=== PATIENT | male | born 1990 | race Caucasian/White ===

== ENCOUNTER 2017-05-23 16:11 | Inpatient (IN) | payer OTHER ==
[~2017-05-23] VITALS: Ht 193 cm; Wt 81.6 kg
[~2017-05-23 16:11] MED LIST: CLONIDINE0.1 MG PO; HYDROXYZINE50 MG PO; ZOFRAN4 MG PO
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
[2017-05-23 17:25] LABS: ABSOLUTE BASOPHIL COUNT 0 /CUMM (0.0-0.2); ABSOLUTE EOSINOPHIL COUNT 0.2 /CUMM (0.0-0.7); ABSOLUTE GRANULOCYTE CT 6.6 /CUMM (1.4-6.5); ABSOLUTE LYMPH COUNT 1.5 /CUMM (1.2-3.4); ABSOLUTE MONOCYTE COUNT 0.6 /CUMM (0.10-0.60); BASOPHIL % 0.3 % (0.0-2.0); EOSINOPHIL % 2.3 % (0-5); GRANULOCYTE % 73.5 % (42.2-75.2); MEAN CORPUSCULAR HGB 28.9 PG (27.0-31.0); MEAN CORPUSCULAR HGB CONC 33.4 G/DL (33.0-37.0); MEAN CORPUSCULAR VOLUME 86.6 FL (80.0-94.0); MEAN PLATELET VOLUME 7.7 FL (7.4-10.4); PLATELET COUNT 268 /CUMM (130-400); RBC DISTRIBUTION WIDTH 16.3 % (11.5-14.5)
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
[2017-05-23 20:58] VITALS: BP 141/69
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
--- NOTE | 2017-05-23 21:44 | History & Physical ---
General Information and HPI MD Statement: I have seen and personally examined TEENAMCKENZIE Mcneill and documented this H&P. The patient is a 26 year old M who presented with a patient stated chief complaint of [ medical evaluation ]. Source of Information: patient Exam Limitations: no limitations History of Present Illness: 26-year-old male with past medical history significant for depression, polysubstance abuse presented to ER for help in detox and major depression. Patient does not have a space to live right now and has been living with one friend or the other. Has been using heroine every day and cocaine every few days, last cocaine use on Friday. Patient was admitted last year for similar complaints, was successfully abstaining from drugs until summer then he relapsed again. Patient does not have any other medical problems, no recent hospitalizations, denies any chest pain, palpitations, chest congestion, cough, expectoration, abdominal pain, nausea, vomiting, diarrhea, urinary symptoms, loss of consciousness, falls, skin rashes. Allergies/Medications Allergies: Coded Allergies: No Known Allergies (05/23/17) Home Med list No Known Home Medications Past History Travel History Traveled to [facility] past 21 day No Medical History Neurological: NONE EENT: NONE Cardiovascular: NONE Respiratory: NONE Gastrointestinal: NONE Hepatic: NONE Renal: NONE Musculoskeletal: NONE Psychiatric: depression, IV drug abuse, substance abuse, Cocaine use d/o Cannabis use d/o Endocrine: NONE Blood Disorders: NONE Cancer(s): NONE COFFEE BREWER/Reproductive: NONE History of MRSA: No History of VRE: No History of CDIFF: No Isolation History: Standard Tetanus Vaccine: 06/02/03 Surgical History Surgical History: non-contributory Past Family/Social History Family History Relations & Conditions if any Relation not specified for: *No pertinent family history Psychosocial History Where do you live? Other Who Do You Live With? friend Services at Home: None Primary Language: Nepali Smoking Status: Current Everyday Smoker ETOH Use: occasional use Illicit Drug Use: heroin Functional Ability ADLs Independent: dressing, eating, toileting, bathing. Ambulation: independent IADLs Independent: shopping, housework, finances, food prep, telephone, transportation , medication admin. 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 EENTM: Reports: no symptoms. Cardiovascular: Reports: no symptoms. Respiratory: Reports: no symptoms. GI: Reports: no symptoms. Genitourinary: Reports: no symptoms. Musculoskeletal: Reports: no symptoms. Skin: Reports: no symptoms. Neurological/Psychological: Reports: no symptoms. Hematologic/Endocrine: Reports: no symptoms. Exam & Diagnostic Data Last 24 Hrs of Vital Signs/I&O Vital Signs Date Time Temp Pulse Resp B/P B/P Pulse O2 O2 Flow FiO2 Mean Ox Delivery Rate 05/23 2058 97.4 79 141/69 05/23 2001 97.3 82 18 141/66 100 05/23 1920 97.9 78 17 150/77 100 Room Air 05/23 1710 99.0 68 16 134/67 99 Room Air Intake & Output 05/23 1600 05/24 0000 05/24 0800 Intake Total Output Total Balance Patient 81.647 kg Weight Weight Reported by Patient Measurement Method Physical Exam General Appearance Alert, Oriented X3, Cooperative, No Acute Distress Skin No Rashes, No Breakdown HEENT Atraumatic, PERRLA, EOMI Neck Supple, No JVD, No thryomegaly, +2 Carotid Pulse wo Bruit Lymphatic Cervical nl Cardiovascular Regular Rate, Normal S1, Normal S2, No Murmurs Lungs Clear to Auscultation, Normal Air Movement Abdomen Normal Bowel Sounds, Soft, No Tenderness Neurological Exam Findings: Normal Gait, Normal Speech, Strength at 5/5 X4 Ext, Normal Tone, Sensation Intact, Cranial Nerves 3-12 NL, Reflexes 2+ Cranial Nerves II through XII: 3-12 intact Extremities No Clubbing, No Cyanosis, No Edema, Normal Pulses Vascular Normal Pulses, Pulses Symmetrical Last 24 Hrs of Labs/Walter: Laboratory Tests 05/23/171714: Serum Alcohol < 10.0 05/23/171714: Anion Gap 11, Estimated GFR > 60, BUN/Creatinine Ratio 14.0, Glucose 91, Calcium 10.0, Total Bilirubin 0.4, AST 26, ALT 40, Alkaline Phosphatase 61, Total Protein 7.0, Albumin 4.1, Globulin 2.9, Albumin/Globulin Ratio 1.4, CBC w Diff NO MAN DIFF REQ, RBC 4.50 L, MCV 86.6, MCH 28.9, RDW 16.3 H, MPV 7.7, Gran % 73.5, Lymphocytes % 17.1 L, Monocytes % 6.8, Eosinophils % 2.3, Basophils % 0.3 , Absolute Granulocytes 6.6 H, Absolute Lymphocytes 1.5, Absolute Monocytes 0.6 , Absolute Eosinophils 0.2, Absolute Basophils 0, PUBS MCHC 33.4, Urine Opiates Screen < 100.00, Methadone Screen < 40, Barbiturate Screen < 60, Ur Phencyclidine Scrn < 6.00, Amphetamines Screen 158, U Benzodiazepines Scrn < 85, Urine Cocaine Screen 267, Urine Cannabis Screen 45.40 Diagnostic Data EKG Results ECG reviewed, partial right bundle branch block Assessment/Plan Assessment: #1 polysubstance abuse: cocaine and heroine, occasional alcohol use, current smoker. Last cocaine use 5 days back, no complaints of chest pain, palpitations , loss of consciousness. No acute ECG changes. Continuously yawning, probably secondary to heroin withdrawal. Agree with psychiatrist plan #2 depression: Agree with psychiatrist plan As Ranked By This Provider Problem List: 1. Depression Qualifiers Depression Type: unspecified Qualified Code: F32.9 - Major depressive disorder, single episode, unspecified 2. Heroin abuse 3. Polysubstance abuse Miscellaneous Miscellaneous Documentation Attending Case Discussed With: Suraj KUNZ PHD,Alejandro Emmanuel Primary Care Physician: Patient Has No Primary Care Dr Patient sees these Specialists Unknown Level of Patient Care: NAWAF Dey
--- NOTE | 2017-05-24 01:39 | Admission Certification ---
Admission Certification Certification Statement - As attending physician, I certify that at the time of - admission, based on clinical presentation, severity of - symptoms, need for further diagnostic testing and - therapeutic interventions, and risk of adverse outcomes - without in-hospital treatment, in my clinical assessment, - this patient requires an acute hospital stay for a minimum - of two nights or longer. I have also considered psychsocial - factors such as support system, advanced age, financial - issues, cognitive issues, and failed out-patient treatments, - past re-admission history, safety of patient, and lack of - compliance as applicable. Specific rationale supporting this admission is: Polysubstance abuse, withdrawal, major depression.
[2017-05-24 07:00] VITALS: BP 132/84
[2017-05-24 07:44] VITALS: BP 132/84
[2017-05-24 12:14] VITALS: BP 127/66
--- NOTE | 2017-05-24 14:29 | CPS PROVIDER INIT ASMT PSYCH ---
Psychiatric Admission Adjunct Psychology Faculty Member's Note Reviewed: Yes Patient Seen and Examined: Yes Identifying Information: 26-year-old undomiciled, unemployed man Chief Complaint: "I feel like crap" Reaction to Hospitalization: Appreciative History of Present Illness Onset of Illness: Chronic history of mood and opiate use disorders Circumstances Leading to Admission: Presented to [facility] ER 05/23, accompanied by his girlfriend. Reports chronic depression that been worsening with recent onset of suicidal ideation with plan to overdose. Says that he has multiple stressors, including recent loss of his job, loss of his housing, and loss of his vehicle. He also is unable to control his ongoing opiate use disorder, and reports using "up to 25 bags "each day of intravenous heroin. Also notes use of crack cocaine one week ago. Problem(s) Justifying Need for Admission: Suicidal ideation, worsening depression, malignant opiate use disorder Other HPI: As noted in crisis note: The pt reports he has been hospitalized 3x in the past 6 months for depression, SI and Opiate dependence. The pt was hospitalized at [facility] twice and [facility] once. The pt is not engaged in outpatient treatment and has a hx of inpatient detox. The pt reports that 2 years ago he was on Methadone maintenance for approximately 4 months but stopped due to not feeling well on Methadone. The pt was admitted twice in the past to [facility] for depression, SI and Heroin dependence (07/2015 and 07/2014). Previous records indicate the pt was prescribed Wellbutrin and Zoloft. Past Psychiatric History Past Diagnosis(es)- if any: Depressive disorder, unspecified Severe opioid use disorder Severe cannabis use disorder Severe cocaine use disorder Past Precipitating Factors- if any: Homelessness, unemployment, substance use - Include inpatient and outpatient treatment Treatment History: History of multiple previous inpatient hospitalizations, was last treated at [facility] July 2015 for 6 days under similar circumstances to current. At that time was detox, started on Wellbutrin and and discharged on Wellbutrin 150 mg daily of the XL formulation. Also discharged on gabapentin 400 mg twice a day for anxiety. At that time he declined adding a mood stabilizer despite it being recommended by the treatment team. He was referred to the [facility] for rehabilitation program Has a history of noncompliance with outpatient follow-up. Short period of methadone maintenance (for months reportedly) and then stopped. History of Suicide Attempts or Gestures Previous attempt to hang self at age 18 Substance Abuse History: See above Allergies: Coded Allergies: No Known Allergies (05/23/17) Home Med List: The patient reports taking no home medications. - Include any medical condition(s) that may - impact the patient's recovery/remission Past History Medical History Neurological: NONE EENT: NONE Cardiovascular: NONE Respiratory: NONE Gastrointestinal: NONE Hepatic: NONE Renal: NONE Musculoskeletal: NONE Psychiatric: depression, IV drug abuse, substance abuse, Cocaine use d/o Cannabis use d/o Endocrine: NONE Blood Disorders: NONE Cancer(s): NONE WHOLESALE AGRONOMIST/Reproductive: NONE History of MRSA: No History of VRE: No History of CDIFF: No Isolation History: Standard Tetanus Vaccine: 06/02/03 Surgical History Surgical History: none Psychiatric Family/Social Hx Family History Psychiatric Illness: Unknown Substance Use: Unknown Suicides: Unknown Social History Living Situation: Currently homeless Significant Relationships (family/friends): Reports having a girlfriend, as well as a supportive mother Education: High school Vocation/Occupation: Currently unemployed. 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 Healthly Behaviors Screening Tobacco Screening Tobacco Use from ED Docu: Current Daily Use Daily Tobacco Use Amount/Type: => 5 Cigarettes daily - If tobacco counseling indicated - the following topics are required. - #1 Recognizing dangerous situations. - #2 Coping Skills. - #3 Basic information about quitting. Status of Tobacco Cessation Counseling: #1, #2 AND #3 Completed Cessation Med Status Nicotine Gum Ordered Alcohol Screening - ETOH screen POS if BAL >=80 or Audit-C>= M4/F3 Audit-C Score from Diag Assess: 1 Blood Alcohol Level: Laboratory Tests 05/23 1715 Toxicology Serum Alcohol (<10 MG/DL) < 10.0 Alcohol Use Screening Results: Neg per Audit C &/or BAL - If ETOH counseling indicated - the following topics are required. - #1 Express concern about the patient's - drinking at unhealthy levels, include informing - of national norms for moderate drinking: - men <= 14 drinks/week, max 4 drinks/occasion - women <= 7 drinks/week, max 3 drinks/occasion - #2 Providing feedback, including linking alcohol to - negative physical effects (liver injury, hypertension) - negative emotional effects (relationship problems and - depression) - negative occupational consequences (reduced work - performance) - #3 Advising the patient to abstain from alcohol or - to drink below national norms for moderate drinking - (as listed above). Status of ETOH Use Counseling: N/A B/C NO ETOH Use Metabolic Screening - Screen if on a Neuroleptic Medication - Metabolic screening should include: - Blood Pressure, BMI, Glucose or Hgb A1c, & a - Lipid profile from within the past 365 days. Metabolic Screening () Not Applicable, patient not on a neuroleptic. Exam and Plan Mental Status Examination Ambulation Status: Stable Appearance: Numerous tattoos, mildly disheveled Attitude towards examiner: Pleasant and cooperative Psychomotor activity: Within normal limits Behavior: Within normal limits Quality of speech: Normal rate, amount, volume, prosody Affect: Constricted Mood: "Depressed " Suicidal Ideation: Denies currently Homicidal Ideation: Denies currently Hallucinations: Denies currently Paranoid/Delusional Material: None evidenced Difficulties with thought organization: None evidenced Insight: Fair Judgment: Poor Orientation: To person place time and situation Cognition: Appropriate attention, immediate and delayed recall Memory Function: Intact as noted above Estimate of intellectual functioning: Average Assets/Strengths Patient Identified Assets/Strengths: Supportive mother, supportive girlfriend, history of recent employment Impression/Plan Impression and Plan: 26-year-old with chronic opiate use disorder and co-occurring depressive disorder, presenting with suicidal ideation in context of psychosocial stressors and poor outpatient treatment compliance. - Include all active medical diagnosis that require tx DSM 5 Diagnosis(es): Depressive disorder, unspecified Rule out opiate-induced depressive disorder Severe opiate use disorder Cocaine use disorder, moderate Cannabis use disorder, severe, in remission - Initial Tx Plan for Active Psych & Medical Conditions Treatment Plan: Admit to Inpatient Psychiatry 15 minute checks Administer COWS every 4 hours Symptom triggered methadone administration for opioid withdrawal COWS>10. Clonidine administration for mild symptoms of withdrawal COWS <11. Will identify total methadone needs and place on taper Restart on Wellbutrin XL 150 mg daily Tobacco cessation counseling and nicotine replacement treatments provided Collect further collateral - Factors that would help patient function - in a less restrictive setting. Factors: Absence of suicidal ideation Improvement in mood
[2017-05-24 15:51] VITALS: BP 120/73
[2017-05-24 18:29] VITALS: BP 139/69
[2017-05-25 09:32] VITALS: BP 141/70
[2017-05-25 12:08] VITALS: BP 135/75
--- NOTE | 2017-05-25 12:42 | CP SOUTH PROGRESS NOTE PSYCH ---
Psych (Inpt) Progress Note Progress Note Include the following elements, when applicable: Involvement in the active treatment of the patient with behavioral observations of the patient and the patient's response to the treatment. Review of the ongoing treatment process in the context of the treatment plan. Indication of how multi-disciplinary staff members are carrying out the treatment plan. Plans for future interventions and recommendations for revision of the treatment plan. Liaison with other physicians/providers. Progress Note: Chart reviewed, progress discussed with nursing staff. Interviewed patient this morning. He notes ongoing symptoms of opiate withdrawal, these were confirmed with nursing staff, including last night requiring a bedding change due to night sweats. Yesterday he took 30 mg of methadone during the course of the day, and discussed with patient initiating a taper at 30 mg today, 20 mg tomorrow. He is in agreement with this plan. We also discussed taking clonidine as needed for any breakthrough symptoms of which again he is in agreement. He tolerated initiation of Wellbutrin XL 150 mg daily yesterday without concern, and today he denies any SI or HI. Denies perceptual disturbances. He feels as though he is improving slowly. Vital signs reviewed and were within normal limits. There are no new laboratory tests resulting this morning. I reviewed his EKG, which demonstrated a QTC of 422 ms. Mental status exam: Adequately groomed, mildly thin man with multiple tattoos dressed in hospital clothing. No abnormal movements noted, no psychomotor retardation or agitation. Good eye contact. Speech was within normal limits. Mood was "getting better", affect was mildly constricted, non- labile, congruent. Thought process was logical and linear. Thought content without suicidal or homicidal ideation. He denies perceptual disturbances. Cognition was grossly intact. Insight and judgment were fair. Assessment and plan: Co-Occurring opiate use disorder and depressive disorder, he is tolerating methadone for brief detox adequately. I have started a standing methadone taper for him. I have also reinitiated his antidepressant, Wellbutrin, on which he has had good response to the past. Plan would be likely for longer-term substance use rehabilitation following acute psychiatric hospitalization.
[2017-05-25 15:43] VITALS: BP 123/56
[2017-05-25 19:28] VITALS: BP 128/66
[2017-05-25 19:50] VITALS: BP 128/66
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
[2017-05-26 07:42] VITALS: BP 122/68
[2017-05-26 12:02] VITALS: BP 137/79
--- NOTE | 2017-05-26 13:25 | CP SOUTH PROGRESS NOTE PSYCH ---
Psych (Inpt) Progress Note Progress Note Include the following elements, when applicable: Involvement in the active treatment of the patient with behavioral observations of the patient and the patient's response to the treatment. Review of the ongoing treatment process in the context of the treatment plan. Indication of how multi-disciplinary staff members are carrying out the treatment plan. Plans for future interventions and recommendations for revision of the treatment plan. Liaison with other physicians/providers. Progress Note: Dr. Ruelas's notes reviewed. Medication list reviewed. Case discussed with nurse. Nurse reports that the patient is here with depression and opiate and stimulant use. Patient apparently had suicidal ideation to hang himself or to overdose with heroin. Patient is on COWS and a methadone taper. Looks well. Motivated for treatment. Wants to get into rehab. Patient seen at 10:18 AM. States is here with depression, substance abuse and passive suicidal ideation. He is on Wellbutrin and a methadone taper. Affect is calm and blunted to euthymic. Feels well today. Reports he woke up at 6 AM. Reports mood is stable. Rates sad mood 0/10. Reports anxiety is maybe like a 3-4/10. Denies feeling hopeless, helpless or worthless. Feels guilty for having cheated on his girlfriend 6 months ago and for his drug use. Denies active and passive suicidal ideation. Denies homicidal ideation. Denies auditory and visual hallucinations and paranoid ideation. Reports sleep has been complicated by middle of the night awakenings with sweating. Appetite is suppressed. Energy is low. Tolerating medications well, without complaint. IMPRESSION: Slow progress. Continue present treatment plan.
[2017-05-26 15:57] VITALS: BP 122/81
[2017-05-26 20:05] VITALS: BP 127/67
[2017-05-27 07:50] VITALS: BP 132/72
[2017-05-27 12:33] VITALS: BP 141/66
--- NOTE | 2017-05-27 14:59 | SOCIAL WORKER PROG NOTE PSYCH ---
Social Work Progress Note Progress Note SW met with pt. He presents as calm, cooperative and friendly. Denies SI/Hi/AH/ VH at present. Pt said he is feeling a lot better and thinks the wellbutrin and methadone are helping. He denies cravings at this time but thinks the meds are helping with it. He notes stressors of being evicted, not working and feels he needs a halfway rehab as he has been doing this for 9 years. Hx of working [facility]. He is interested in looking into [facility], [facility], [facility], [email or web address] and [place].
--- NOTE | 2017-05-27 15:10 | CP SOUTH PROGRESS NOTE PSYCH ---
Psych (Inpt) Progress Note Progress Note I reviewed Dr. See note from yesterday and Dr. Ruelas's notes from the weekend. I listened to multidisciplinary staff meetings input including nursing staff and social work. I reviewed the current and prior medications with Simone. Summary: Simone had suicidal ideation to hang himself or to overdose with heroin prior to / on the day of his admission. Mental Status Examination: Simone was alert and oriented to time, place, and person. Affect is calm and euthymic. He reported that he feels well today/not depressed. He reported mild anxiety, denies feeling hopeless or worthless, and denied thinking of suicide or violence He reported his girlfriend is being admitted inpatient for psych and drug use denies auditory and visual hallucinations and paranoid ideation. There were no delusions and no thought disorder Assessment: Patient believes he is ready for discharge to a rehab but not discharge to the street He is currently homeless as he and girlfriend were evicted Treatment Plan Update: D/ C Methadone (per patients request and he has no withdrawal symptoms or signs , he had only one dose of 5 mg scheduled anyway) D/C Trazodone (makes patient restless/does not help him sleep)
[2017-05-27 16:39] VITALS: BP 137/71
[2017-05-27 20:17] VITALS: BP 135/78
[2017-05-28 08:03] VITALS: BP 133/92
[2017-05-28 12:24] VITALS: BP 139/61
--- NOTE | 2017-05-28 13:46 | CP SOUTH PROGRESS NOTE PSYCH ---
Psych (Inpt) Progress Note Progress Note I listened to multidisciplinary treatment staff meetings input including nursing and social work. Mental Status Examination: Simone was alert and oriented to time, place, and person. His affect was euthymic. He reported that he slept the best sleep he had in a while (for 2 [id number]), he reported that he is not depressed today. He reported mild anxiety, denies feeling hopeless or worthless, and denied thinking of suicide or violence. He denied auditory and visual hallucinations and paranoid ideation. There were no delusions and no thought disorder Assessment: Simone was admitted to [facility] because he had suicidal ideation to hang himself or to overdose with heroin. He is currently homeless as he and girlfriend were evicted. Showing progress but focused in direct discharge to rehab Treatment Plan Update: Continue Wellbutrin-XL 150 mg daily Re-evaluate tomorrow
--- NOTE | 2017-05-28 14:05 | SOCIAL WORKER PROG NOTE PSYCH ---
Social Work Progress Note Progress Note Simone was anxious to start working on referrals to rehab today, since this had not been done yet. He reported that he had made some calls, but they really needed the clinical info. Had him sign releases for [facility], [facility], [facility], [facility], [facility], [facility], [employer], [facility], [facility], and [facility]. All referrals were faxed. He was last in rehab in 2016, when he went to [facility] from here. He is currently homeless. Evicted from his apartment. Reports staying with family is not an option. Worried that he will be discharged without a plan. Reported later that he thinks that [facility] may be an option for him and that they may have a bed on Friday. Application was filled out and faxed back to admissions.
[2017-05-28 15:37] VITALS: BP 143/67
--- NOTE | 2017-05-28 17:42 | RADIOLOGY REPORT ---
EXAMINATION: XR CHEST CLINICAL INFORMATION: Rehabilitation COMPARISON: Chest x-ray 02/19/2006 TECHNIQUE: 2 views of the chest were obtained. FINDINGS: No significant abnormality is noted involving the heart, lungs, mediastinum, bony thorax or soft tissues. IMPRESSION: Unremarkable examination.
[2017-05-28 19:35] VITALS: BP 138/57
[2017-05-29 07:56] VITALS: BP 137/74
--- NOTE | 2017-05-29 08:13 | SOCIAL WORKER PROG NOTE PSYCH ---
Social Work Progress Note Progress Note Filled out release of information for [facility] and faxed back to [facility] for possible case management services from [facility] for Simone.
[2017-05-29 11:57] VITALS: BP 134/78
--- NOTE | 2017-05-29 12:57 | CP SOUTH PROGRESS NOTE PSYCH ---
Psych (Inpt) Progress Note Progress Note The multidisciplinary treatment team discussed Eliaz[facility] care and progress in the staff meeting (which included input from nursing and social work. Mental Status Examination: Simone seemed to be in good spirits this morning. He was watching a basketball game. He was alert and oriented to time, place, and person. His affect was euthymic. Simone reported that he continues to sleep very well. He reported that he is not depressed and not anxious. He denied feeling hopeless or worthless, and denied thinking of suicide or violence. He denied auditory and visual hallucinations and denied paranoid ideation. There were no delusions and no thought disorder Assessment: Simone is a 26-year-old single White male who was admitted to [facility] because he had suicidal ideation. Simone is currently homeless because he (and girlfriend) were evicted. Showing progress and working hard on a direct discharge to a rehab Chest X-ray FINDINGS: No significant abnormality is noted involving the heart, lungs, mediastinum, bony thorax or soft tissues. IMPRESSION: Unremarkable examination. Treatment Plan Update: Continue Wellbutrin-XL 150 mg daily Re-evaluate tomorrow
--- NOTE | 2017-05-29 13:19 | SOCIAL WORKER PROG NOTE PSYCH ---
Social Work Progress Note Progress Note Called [employer]. and left a message for their tourist information assistant Ayla. Faxed [facility] Simone's X-ray per their request. Spoke with Sukhjinder at [facility] [phone] about Simone's referral for case management. Sukhjinder would like to know where Simone will be going at discharge so he can follow up with him. Called [facility] and discussed level of care authorization for rehab. Spoke with [facility] . Simone is approved for [facility], but if he can't get in there he would be approved for a short-term 30 day rehab. Called [facility] and left a message for their clinical director. Yvette from [facility] returned the call, she had some concerns that she wanted addressed about Simone's risks around SI and EKG results. She said a letter from the psychiatrist would suffice in regards to Simone's current risk of suicide. Dr. Kern (banquet attendant) was able to review EKG's from the past 2 years. A letter was written by Dr. Kruger to discuss findings and to discuss current suicide risk. These letters were faxed to [facility]. [facility] called and stated they will take Simone tomorrow. Called [facility] to schedule transport.
--- NOTE | 2017-05-29 15:14 | SOCIAL WORKER PROG NOTE PSYCH ---
Social Work Progress Note Progress Note MCKENZIE DICKINSON [id number] 1990 MCKENZIE DICKINSON [id number] Pended Authorization # Client Authorization # Type of Request [id number] CONCURRENT Date of Admission/ Start of Services Requested From Submission Date 05/23/2017 05/29/2017 05/29/2017
[2017-05-29 15:43] VITALS: BP 125/65
[2017-05-29 20:11] VITALS: BP 141/77
[2017-05-30 07:34] VITALS: BP 136/73
[2017-05-30] MEDS ORDERED: NEURONTIN300 M1 PO (08:37)
[2017-05-30] MEDS ORDERED: WELLBUTRIN XL150 M2 PO (08:37)
--- NOTE | 2017-05-30 10:04 | SOCIAL WORKER PROG NOTE PSYCH ---
Social Work Progress Note Progress Note Called [facility] and spoke with one of the nurses. She stated Simone would need about 30 days of meds with him and then he will see a prescriber while he was there. Meds were filled at [facility] so he could take with him. Simone was excited and ready to go. Left around 9:30am via [facility] [employer].
--- NOTE | 2017-05-30 10:06 | SOCIAL WORKER PROG NOTE PSYCH ---
Social Work Progress Note Faxed Referral(s) Referred To: [facility] Transition of Care Documents sent: Health Summary, W10 Faxed to: [facility] Fax #: [phone] Faxed by: Patsy Boyd Date faxed: 05/30/17 Time Faxed: [phone]
--- NOTE | 2017-05-30 11:56 | DISCHARGE SUMMARY REPORT-PSYCH ---
Visit Information Visit Dates/Diagnosis' Admission Date: 05/23/17 Discharge Date: 05/30/17 Reason for Admission: Simone is a 26-year-old single white male who was admitted to [facility]'s inpatient psychiatric unit on 05/24/2017. The patient presented to the emergency room on May 23 with his girlfriend reporting that his depression has been worsening and that he has been having thoughts of suicide with a plan to overdose. The patient has been having multiple stressors and has in his life including being evicted to whether with his girlfriend the loss of his job the loss of his housing and the loss of his vehicle. He also was unable to control his ongoing opioid use. He reported that he was using "up to 25 bags" each day intravenously. Simone also noted that he was using crack cocaine for about one week prior to his presentation. Psy Discharge Primary Diag: Depression, Unspecified depression Psy Discharge Secondary Diag: Opioid Dependence Hospital Course Significant Lab Findings: EKG reviewed with Dr. Erlin MD May 29, 2017 To whom it may concern RE: Simone Polanco (: 1990) Madam/Sir: I repeated Mr. Mayfield EKG today and Dr. Juni Kern MD, a telecommunications switch technician with [facility] reviewed it and compared it to previous EKGs all the way back to July 2014. Dr. Kern indicated to me that the minor irregularities on the EKG are chronic , non-life threatening and may represent normal variations that have been there since at least July 2014 (if not before). There is no need for any interventions. Sincerely, Wolfgang Kruger MD Course Complications: none Consultations: H&P by Hospitalist/Attic Fans Mechanic and EKG phone consultation with Dr. Kern Allergies: Coded Allergies: No Known Allergies (05/23/17) Hospital Course/TX Response: Simone is a 26-year-old single white male who was admitted to [facility]'s inpatient psychiatric unit on 05/24/2017. The patient presented to the emergency room on May 23 with his girlfriend reporting that his depression has been worsening and that he has been having thoughts of suicide with a plan to overdose. The patient has been having multiple stressors and has in his life including being evicted to whether with his girlfriend the loss of his job the loss of his housing and the loss of his vehicle. He also was unable to control his ongoing opioid use. He reported that he was using "up to 25 bags" each day intravenously. Simone also noted that he was using crack cocaine for about one week prior to his presentation. The patient was evaluated by Dr. Ruelas on 02/11/2023 and he was placed on methadone for the management of his opioid withdrawal. The patient was restarted on Wellbutrin XL 150 mg every morning. The patient was also placed on clonidine on an as needed basis. On May 25 the patient was reevaluated by Dr. Ruelas, the patient seems to be tolerating the methadone taper without any major difficulties. An EKG was done and showed irregularities in his EKG that were present as far back as July 2014. The patient's QTC interval was 422nd milliseconds (i.e. within normal limits). On May 26 the patient was evaluated by MD ANT Lyles and who indicated that the patient was not having active or passive suicidal ideation and that he was tolerating the methadone taper without any major difficulties. I evaluated the patient on May 27 and he was doing relatively well but still having what sounded like contingent thoughts of suicide saying that he does not have thoughts of suicide as long as he has long as he is going to residential rehabilitation or in the hospital but that he may have thoughts of suicide if he is "discharged to the street". The methadone was stopped at his request as he was not experiencing any major withdrawal symptoms at this point and he did not want anything to interfere with his ability to find a residential rehabilitation place as soon as possible the trazodone was also discontinued because he complained that it was only causing him restlessness in his legs and was not helping him sleep. On May 28 he seems to be doing better. Reported that he had the best sleep for 2 nights and on all he reported mild anxiety denied thinking of suicide and did not exhibit any psychotic symptoms or signs and he was actively calling residential rehabilitation programs. On May 29 he seems to be very motivated and continues to be calling different residential rehabilitation programs a chest x-ray was ordered which so showed no significant abnormalities and no evidence of any infectious process. The EKG was repeated because the [facility] had some concerns about the minor changes in the EKG. I contacted Dr. Juni Kern M.D. telecommunications switch technician with a [facility] who reviewed the EKG and reviewed reviewed the previous EKGs and he reported that there was no significant changes since the previous EKGs as far as back as July 2014 and there is no evidence of any kind of acute ischemia or any life-threatening changes in the EKG. On May 30 the patient's was in good spirits and he was looking forward to leaving to [facility]. They were going to provide a transportation the patient is only on the Wellbutrin XL 150 mg in the morning. But he reported that after 2-3 nights of very good sleep last night he had difficulties and we discussed options and decided on as needed doses of gabapentin 600 mg at bedtime as needed for insomnia. Discharge disposition to [facility] rehabilitation Discharge medications: Wellbutrin XL 150 mg daily gabapentin 600 mg at bedtime as needed for insomnia Discharge HBIPS - Tobacco Use Treatment Offered Post DC Medications Offered: Refused Tob Medication Tx Post DC Tobacco Treatment Plan: Refused Tobacco Tx Pgm - EtOH/Drug Use D/O Treatment Offered Post DC Medications Offered: Med Not Indicated for D/O Post DC EtOH/SubAbuse TX Plan: Other SubAbuse/Dual Pgm Program Appt Date: 05/30/17 Metabolic Screening - Screen if on a Neuroleptic Medication - Metabolic screening should include: - Blood Pressure, BMI, Glucose or Hgb A1c, & a - Lipid profile from within the past 365 days. Metabolic Screening Not Applicable, patient not on a neuroleptic. Discharge Instructions General Discharge Information Multiple Neuroleptics: Not Applicable Discharge Diet Regular Discharge Activity Normal DC Disposition: to [facility] Referrals Ordered Referrals Provider Referral 05/30/17 [facility] [address] [place] [id number] admission 05/30/17 Prescriptions Start taking the following new medications: Bupropion HCl (Wellbutrin XL) 150 MG TAB.ER.24H 150 Milligram ORAL DAILY @8 AM Qty = 30 No Refills Comments: Last Taken:05/30/17 Time:0812 AM Gabapentin (Neurontin) 300 MG CAPSULE 2 Capsule ORAL AT BEDTIME as needed for Insomnia Qty = 60 No Refills Copies To: [facility]
--- NOTE | 2017-05-30 12:15 | CP SOUTH PROGRESS NOTE PSYCH ---
Psych (Inpt) Progress Note Progress Note Eliazar care and progress were reviewed in the multidisciplinary treatment team/ staff meeting (which included input from nursing and social work). Mental Status Examination: Simone was accepted to [facility] rehabs and was in very good spirits because of that. He reported the 3 good nights of sleep, last night he slept poorly ( because of new roommate). rning. He was watching a basketball game. He was alert and oriented to time, place, and person. His affect was euthymic. Simone reported that he continues to sleep very well. He reported that he is neither depressed nor anxious. He denied feeling hopeless or worthless, and denied wishing or thinking of suicide. he denied thinking of violence or homicide. He denied hallucinations and denied paranoid ideation. There were no delusions and no thought disorder. Assessment: Simone is a 26-year-old single White male who was admitted to [facility] because he had suicidal ideation. Simone was accepted at [facility] and will be directly discharged to a rehab. Treatment Plan Update: Discharge to [facility] Residential rehabilitation. Treatment Plan Update: Continue Wellbutrin-XL 150 mg daily Re-evaluate tomorrow
== END 2017-05-30 09:37 | disposition other institution (70) | DRG 754 ==
LOC: ERH 16:11 → ERHI 19:45 → CP SOUTH 19:45 → ENRESERV 20:00 → ENTRNSPT 20:30 → CP SOUTH 20:38 → CMPTRNSPT 20:43 → CP SOUTH 05-27 08:11
PROVIDERS: Emergency Medicine
DX: F32.9 Major depressive disorder, single episode, unspecified (principal); F11.20 Opioid dependence, uncomplicated
CPT/HCPCS: 36415; 80307; 93005; 93010; G0480